=== PATIENT | male | born 2000 | race Caucasian/White ===

== ENCOUNTER 2020-05-14 07:23 | Day surgery (SDC) | payer OTHER, SELFPAY ==
[2020-05-13 10:46] VITALS: BMI 25.7
[2020-05-14] VITALS (8 sets, daily range): BP systolic 100–139; BP diastolic 61–81; PULSE 58–101; RESP 18–28; TEMP 36.4–36.6; O2SAT 95–100
--- NOTE | 2020-05-14 07:43 | W.PM.OPSUD ---
Surgery/Procedure H&P Update DATE OF PROCEDURE: May 14, 2020 DATE H&P PERFORMED: 05/05/20 H&P UPDATE INFORMATION: I have reviewed H&P completed within last 30 days, I have examined patient prior to procedure and No changes to prior documentation PREOP DIAGNOSIS: pilonidal sinus PLANNED PROCEDURE: Operation Date: 05/14/20 08:45 Proposed Procedures p Excision of pilonidal sinus 63352 L05.91(Not Applicable) - Robert Camarillo MD
[2020-05-14] MEDS: sodium chloride 0.9% 1,000 ML 30 ML IV (07:52)
--- NOTE | 2020-05-14 08:15 | ANES.PREANE2 ---
Pre-Anesthetic Assessment Pre-Anesthetic Assessment: Height/Weight: Height 1.85 m Weight 88.451 kg Temp Pulse Resp BP Pulse Ox 97.9 F 58 L 18 139/79 100 05/14/20 07:39 05/14/20 07:39 05/14/20 07:39 05/14/20 07:39 05/14/20 07:39 Preop Diagnosis: pilonidal sinus Proposed Procedure: Operation Date: 05/14/20 08:45 Proposed Procedures p Excision of pilonidal sinus 73370 L05.91(Not Applicable) - Robert Camarillo MD Familial anesthetic complications: None Last intake: Intake Last Liquid Date 05/13/20 Last Liquid Time 23:30 Last Solid Date 05/13/20 Last Solid Time 22:00 Social: Social History: No alcohol and No tobacco Exam: Pre-Anes Outpt Exam: alert, oriented x 3, clear to auscultation bilaterally and regular rate & rhythm Airway: Cervical ROM: WNL MP: 2 Dentition: Full Pulmonary: Pulmonary: None reported CV/HEM: CV/HEM: None reported : : None reported Hepatic: Hepatic: None reported GI: GI: None reported Metabolic: Metabolic: None reported Musc/skel: Musc/skel: None reported Neuropsych: Neuropsych: None reported Anesthetic Plan: ASA status: 1 Anesthesia: General Risk of > 500 ml blood loss (7ml/kg in children): No Meds/Allergies Current Medications: Current Medications Generic Name Dose Route Start Last Admin Trade Name Freq PRN Reason Stop Dose Admin Sodium Chloride 1,000 mls @ 30 ml s/hr 05/14/20 07:45 05/14/20 07:52 Sodium Chloride 0.9% IV 05/15/20 07:44 30 mls/hr .Q24H RAMU Administration PFSH Anesthesia PFSH: Medical History Pilonidal cyst Family History Brother CAD (coronary artery disease) Mother Diabetes Denies family history of Anesthesia complication Bleeding disorder Cancer Social History Smoking and tobacco status: never smoked Alcohol intake: never Household members: friend(s) Marital status: Single Current occupational status: unemployed History of recent travel: No Current gender identity: Male Data Anesthesia Cardiac Studies: No Data to Display
[2020-05-14] MEDS: neomycin-poly-bacitracin oint 28 gm 1 APPLIC TOPICAL (09:11)
[2020-05-14] MEDS: lidocaine 1% INJ 20 mL SUBCUT (09:28)
--- NOTE | 2020-05-14 09:43 | SUR.PHASEI ---
0940 PATIENT TO PACU FROM OR. RR EVEN AND UNLABORED. SPO2 98% ON RA.
--- NOTE | 2020-05-14 09:46 | SUR.PHASEI ---
0940 DRESSING TO LOWER BACK, CDI.
--- NOTE | 2020-05-14 09:55 | PM.OP ---
Operative Report Date of procedure: May 14, 2020 Pre-op Diagnosis: pilonidal sinus Post-op Diagnosis: Pilonidal abscess to the right of the midline 2 separate pilonidal sinuses Procedure Done: Excision of pilonidal sinus Pathology: Pilonidal sinus Surgeon: Robert Camarillo Anesthesia: General Condition: stable Disposition: PACU Procedure: The patient was taken to the operating room and intubated under general anesthesia after IV antibiotic had been administered. The area around the gluteal cleft was prepped and draped in a sterile manner. Using lacrimal probe 2 separate sinus tracts were identified which appeared to be connected to an abscess drainage site to the right of the midline. Using 15 blade an elliptical incision was made around the drainage site as well as the pilonidal sinus. The subcutaneous tissue was divided using electrocautery and the dissection was carried down to the coccyx and the tissue involving the abscess cavity as well as the sinus tracts were excised and sent to pathology. Using electrocautery subcutaneous flaps were raised to the left of the midline and pulled 2 towards the right side. Wound was irrigated saline, hemostasis ensured and subcutaneous tissues approximated in layers using interrupted 3-0 Vicryl suture and skin was closed using vertical mattress 3-0 Prolene suture. Antibiotic cream and sterile dressings were used to cover the incision. The patient was extubated and transferred to recovery room in stable condition.
--- NOTE | 2020-05-14 10:06 | SUR.PHASEI ---
1001 PATIENT TO OPS AT THIS TIME. NO DISTRESS. PAIN 10/19, DRESSING TO LOWER BACK, CDI.
== END 2020-05-14 10:52 | disposition home or self-care (01) ==
PROVIDERS: Family Provider Family Medicine; PCP Family Medicine; Visit Provider Surgery
PROC: (CPT 11771; principal; 2020-05-14 08:45)
DX: L05.92 Pilonidal sinus without abscess (principal)
CPT/HCPCS: 11771; 12345; 88304; 96365; J0690; J1100; J1885; J2405; J2704; J3010; J3490; J7030

== ENCOUNTER 2022-03-24 09:21 | Day surgery (SDC) | payer BC, SELFPAY ==
[2022-03-23 13:34] VITALS: BMI 29.5
[2022-03-24] VITALS (9 sets, daily range): BP systolic 122–150; BP diastolic 9–92; PULSE 58–78; RESP 16–20; TEMP 36.1–36.8; O2SAT 95–99
--- NOTE | 2022-03-24 09:34 | W.PM.OPSFHP ---
Same Day Surgery H&P Indication for Procedure/HPI DATE OF PROCEDURE: March 24, 2022 CHIEF COMPLAINT/INDICATIONFOR SURGICAL PROCEDURE: pilonidal cystectomy PREOP DIAGNOSIS: pilonidal sinus PLANNED PROCEDURE: Operation Date: 03/24/22 12:50 Proposed Procedures p Pilonidal Cystectomy 81342, l05.91(Not Applicable) - Roebrt Camarillo MD Medications/Allergies* Home Medications Medication Instructions Recorded Confirmed Type No Known Home Medications 03/24/22 03/24/22 History Allergies/Adverse Reactions Allergy/AdvReac Type Severity Reaction Status Date / Time No Known Allergies Allergy Verified 03/24/22 09:28 Pertinent History/Comorbid Conditions* Medical History (Updated 06/01/20 @ 07:38 by Denis Mooney MD) Pilonidal cyst Surgical History (Updated 01/05/22 @ 14:11 by Robert Camarillo MD) History of surgical removal of pilonidal cyst Family History (Updated 05/05/20 @ 15:21 by Sana Lorenzo LPN) Diabetes Mother CAD (coronary artery disease) Brother Denies family history of Anesthesia complication Bleeding disorder Cancer Social History Smoking and tobacco status: never smoked Alcohol intake: never Household members: friend(s) Marital status: Single Current occupational status: unemployed History of recent travel: No Current gender identity: Male Pertinent Exam Findings alert, oriented x 3 and regular rate & rhythm Recommendations Surgery/Procedure today Coding Level of Care Code Acute Public Speaking Coach for Orlin Lorenzana
[2022-03-24] MEDS: sodium chloride 0.9% 1,000 ML 30 ML IV (09:47)
--- NOTE | 2022-03-24 10:07 | ANES.PREANE2 ---
Pre-Anesthetic Assessment Height/Weight: Height 1.88 m Weight 104.326 kg Temp Pulse Resp BP Pulse Ox 98.2 F 67 18 150/9 98 03/24/22 09:30 03/24/22 09:30 03/24/22 09:30 03/24/22 09:30 03/24/22 09:30 Preop Diagnosis: pilonidal sinus Operation Date: 03/24/22 12:50 Proposed Procedures p Pilonidal Cystectomy 62873, l05.91(Not Applicable) - Robert Camarillo MD Familial anesthetic complications: None Was Beta Óscar taken within 24 hours: N/A Was Clonidine taken within 24 hours: N/A Last intake: Intake Last Liquid Date 03/23/22 Last Liquid Time 23:00 Last Solid Date 03/23/22 Last Solid Time 23:00 Social No alcohol and No tobacco Exam alert, oriented x 3, clear to auscultation bilaterally and regular rate & rhythm Airway Submandibular: within normal limits Cervical ROM: within normal limits Mallampati: Class II Dentition: full History/ROS No significant history except as noted Anesthetic Plan ASA status: 1 Anesthesia: General Medications/Allergies Home Medications Medication Instructions Recorded Confirmed Last Taken Type No Known Home Medications 03/24/22 03/24/22 Unknown History hydrocodone 5 mg-acetaminophen 325 1 tab PO Q6H PRN #20 tab 03/24/22 Unknown Rx mg tablet Allergies Allergy/AdvReac Type Severity Reaction Status Date / Time No Known Allergies Allergy Verified 03/24/22 09:28 Current Medications Generic Name Dose Route Start Last Admin Trade Name Freq PRN Reason Stop Dose Admin Sodium Chloride 1,000 mls @ 30 mls/hr 03/24/22 09:30 03/24/22 09:47 Sodium Chloride 0.9% IV 03/25/22 09:29 30 mls/hr .Q24H RAMU Administration PFSH Anesthesia Medical History Pilonidal cyst Surgical History (Updated 03/24/22 @ 09:36 by Robert Camarillo MD) History of surgical removal of pilonidal cyst (03/24/22) Family History Brother CAD (coronary artery disease) Mother Diabetes Denies family history of Anesthesia complication Bleeding disorder Cancer Social History Smoking and tobacco status: never smoked Alcohol intake: never Household members: friend(s) Marital status: Single Current occupational status: unemployed History of recent travel: No Current gender identity: Male Data Anesthesia Cardiac Studies: No Data to Display
[2022-03-24] MEDS: neomycin-poly-bacitracin oint 28 gm 1 APPLIC TOPICAL (10:57)
--- NOTE | 2022-03-24 11:18 | PM.OP ---
Operative Report Date of procedure: March 24, 2022 Pre-op diagnosis: Pilonidal abscess Post-op diagnosis: Pilonidal sinuses with associated abscess Procedure done: 1. Pilonidal cystectomy 2. Layered closure of wound measuring 5 x 3 x 3 cm Specimens removed/disposition: Pilonidal abscess Surgeon: Robert Camarillo Anesthesia: General Condition: stable Disposition: PACU Procedure: The patient was taken to the operating room and intubated under general anesthesia after IV antibiotic had been administered.? The area around the gluteal cleft was prepped and draped in a sterile manner.? Using lacrimal probe 2 separate sinus tracts were identified which appeared to be connected to an abscess drainage site to the right of the midline. Using 15 blade an elliptical incision was made around the drainage site as well as the pilonidal sinus.? The subcutaneous tissue was divided using electrocautery and the dissection was carried down to the coccyx and the tissue involving the abscess cavity as well as the sinus tracts were excised and sent to pathology.? Using electrocautery, subcutaneous flaps were raised bilaterally and pulled towards the right side. The wound measured 5 x 3 x 3 cm wound was irrigated saline, hemostasis ensured and subcutaneous tissues approximated in layers using interrupted 3-0 Vicryl suture and skin was closed using vertical mattress 3-0 Prolene suture.? Antibiotic cream and sterile dressings were used to cover the incision.? The patient was extubated and transferred to recovery room in stable condition.
[2022-03-24] MEDS: HYDROcodone-acetaminophen 5-325 mg Tablet 1 TAB PO (11:47)
--- NOTE | 2022-03-24 12:16 | PC.NURSE ---
Attempted 2 times to get ahold of Dr. Simms office to make 2 week follow up but office did not answer. Educated patient to call and make 2 week follow up.
--- NOTE | 2022-03-24 14:15 | ANE.PACU2 ---
Inpatient post-anesthesia follow up: Airway intact: Yes Vital signs: Temperature 97.9 F Pulse Rate 59 Respiratory Rate 18 Blood Pressure 130/92 Pulse Oximetry 97 Oxygen Delivery Me thod Room Air Oxygen Flow Rate 6 Fraction of Inspir ed Oxygen Hydration adequate: Yes Nausea and vomiting: No Pain level: 2 Mental status: Baseline
== END 2022-03-24 12:10 | disposition home or self-care (01) ==
PROVIDERS: PCP Family Medicine; Visit Provider Surgery
PROC: (CPT 11771; principal; 2022-03-24 12:40)
DX: L05.91 Pilonidal cyst without abscess (principal)
CPT/HCPCS: 11771; 88304; J1100; J2250; J2405; J2704; J2710; J3010; J3490; J7030

== ENCOUNTER → 2023-10-04 15:03 | Outpatient (BNVA) | payer OTHER, SELFPAY | PROVIDERS: PCP Family Medicine; Visit Provider Emergency Medicine | DX: J02.9 Acute pharyngitis, unspecified (principal) | CPT/HCPCS: 87880 ==

== ENCOUNTER → 2023-11-23 09:01 | Outpatient (BNVA) | payer OTHER, SELFPAY | PROVIDERS: PCP Family Medicine; Visit Provider Family Medicine | DX: E66.9 Obesity, unspecified (principal); E11.9 Type 2 diabetes mellitus without complications; L72.0 Epidermal cyst; Z29.81 Encounter for HIV pre-exposure prophylaxis | CPT/HCPCS: 80053; 82306; 84439; 84443; 85025 ==